=== PATIENT | female | born 1935 | race Caucasian/White ===

== ENCOUNTER 2019-05-05 13:17 | Observation (INO) | payer MEDICARE ==
[~2019-05-05] VITALS: Ht 160 cm; Wt 59.4 kg
[~2019-05-05 13:17] MED LIST: MULTI-VITAMIN1 EACH PO; SIMVASTATIN20 MG PO
[2019-05-05 16:31] VITALS: BP 189/79
[2019-05-05 16:37] VITALS: BP 189/79
--- NOTE | 2019-05-05 17:28 | Diagnostic Imaging Report ---
EXAMINATION: CHEST SINGLE (PORTABLE) INDICATION: Cough COMPARISON: None FINDINGS: LINES/TUBES:None LUNGS:The lungs are well-inflated. No focal consolidation or pulmonary edema. PLEURA:No pleural effusion or pneumothorax. MEDIASTINUM:The cardiomediastinal silhouette appears normal in size and shape. Atherosclerotic calcifications of the thoracic aorta. BONES/SOFT TISSUES:No acute osseous injury. ABDOMEN:No free air under the diaphragm. IMPRESSION: No focal pneumonia or pulmonary edema. Signed by: Jahaira aBer MD on 05/05/2019 5:25 PM
[2019-05-05 17:30] LABS: BASOPHILS % 0.3 % (0.0-1.0); EOSINOPHILS # (AUTO) 0.1 (0.0-0.4); EOSINOPHILS % 1.9 % (0.0-6.0); HEMATOCRIT 36.4 % (34.2-44.1); HEMOGLOBIN 12.1 g/dL (12.0-16.0); LYMPHOCYTES % 29.3 % (18.0-39.1); MEAN CORPUSCULAR HEMOGLOBIN 29.1 pg (28-32); MEAN CORPUSCULAR HGB CONC 33.2 g/dL (31-35); MEAN CORPUSCULAR VOLUME 87.5 fL (81-99); MONOCYTES # (AUTO) 0.7 (0.2-0.8); NEUTROPHILS # (AUTO) 3.9 (2.1-6.9); NEUTROPHILS % 58.1 % (38.7-80.0); PLATELET COUNT 270 x10e3/uL (140-360); RED BLOOD COUNT 4.16 x10e6/uL (3.6-5.1); RED CELL DISTRIBUTION WIDTH 12.9 % (11.7-14.4)
[2019-05-05 17:47] LABS: ANION GAP 16.2 mmol/L (8-16); BLOOD UREA NITROGEN 13 mg/dL (7-26); BUN/CREATININE RATIO 21 (6-25); CALCIUM 9.1 mg/dL (8.4-10.2); CARBON DIOXIDE 24 mmol/L (22-29); CHLORIDE 102 mmol/L (98-107); CREATININE, SERUM 0.61 mg/dL (0.57-1.11); EST GLOMERULAR FILTRATION RATE > 60 ML/MIN (60-); GLUCOSE 92 mg/dL (74-118); POTASSIUM 3.2 mmol/L (3.5-5.1); SODIUM 139 mmol/L (136-145)
[2019-05-05] MEDS ORDERED: AZITHROMYCIN 500MG/NS 250 ML 250 ML IV SCH (18:00)
[2019-05-05] MEDS ORDERED: ALBUTEROL/IPRATROPIUM 3 ML NEB NEB PRN (18:15)
[2019-05-05] MEDS ORDERED: ACETAMINOPHEN 325 MG TAB PO PRN (18:15)
[2019-05-05] MEDS ORDERED: POTASSIUM CHLORIDE 20 MEQ TAB CR PO NR (18:45)
[2019-05-05] MEDS: METHYLPREDNISOLONE SOD SUCC 40 MG/ML VIAL 1ML IV SCH (18:47)
[2019-05-05] MEDS: CEFTRIAXONE SOD 1 GM/NS 50 ML 50 ML IV SCH (18:47)
--- NOTE | 2019-05-05 18:59 | Diagnostic Imaging Report ---
EXAMINATION: CT scan of the chest without contrast. TECHNIQUE: Helical CT images of the chest were performed from the lung apices to the level of the adrenal glands. No intravenous contrast was administered. Coronal and sagittal reformatted images were obtained. Dose modulation, iterative reconstruction, and/or weight based adjustment of the mA/kV was utilized to reduce the radiation dose to as low as reasonably achievable. COMPARISON: None. CLINICAL HISTORY:fever DISCUSSION: ABSENCE OF INTRAVENOUS CONTRAST DECREASES SENSITIVITY FOR DETECTION OF FOCAL LESIONS AND VASCULAR PATHOLOGY. LINES/TUBES: None. LUNGS AND AIRWAYS: Minimal tree-in-bud nodularity in the right upper lobe image 23 through 26. No consolidation. Mild atelectasis along the left major fissure. Right lower lobe calcified granuloma. The airways are normal, without endobronchial lesions. PLEURA: No pneumothorax or pleural effusions. HEART AND MEDIASTINUM: The thyroid gland is normal. Vascular calcifications. LYMPH NODES: There is no mediastinal, hilar or axillary lymphadenopathy. ABDOMEN: Scattered hypodensities within the liver, likely cysts. BONES AND SOFT TISSUES: No acute bony abnormalities. IMPRESSION: No consolidative pneumonia or acute CT finding. Signed by: Dr. Durga Palmer M.D. on 05/05/2019 6:56 PM
--- NOTE | 2019-05-05 19:15 | NUR ---
patient received awake, alert, lying quietly in bed. no c/o pain noted. pm assessment complete. call covarrubias placed within patients reach. bed alarm remains on for safety. patient instructed to call for assistance when needed.
[2019-05-05 20:00] VITALS: BP 142/63
[2019-05-05 20:34] VITALS: BP 142/63
[2019-05-05] MEDS: FAMOTIDINE 20 MG TAB PO SCH (20:53)
[2019-05-06] VITALS: BP 152/83
--- NOTE | 2019-05-06 00:37 | Consultation ---
DATE OF CONSULTATION: REASON FOR CONSULTATION: The patient has pneumonia, allergies to several antibiotics. HISTORY OF PRESENT ILLNESS: This is a patient who is an 84-year-old female, who said that she is allergic to several antibiotics. The patient comes in with fever and chills. She has been sick for 2 weeks. She took some antibiotics, but she is not so sure what they are, so she was admitted. Apparently, she is allergic to penicillin and sulfa drugs, but according to previous note, I found out in the record, she did well with cephalosporin. The patient, who has a history of UTI. She was given Macrobid before she was given cephalosporin before she is coming with the above complaint fever, chills, and cough, not getting any better. The patient is being admitted. PAST MEDICAL HISTORY: UTI before. PAST SURGICAL HISTORY: As above. ALLERGIES: PENICILLIN AND SULFA. SOCIAL HISTORY: There is no smoking, drug abuse, or alcohol abuse. FAMILY HISTORY: Noncontributory. LABORATORY DATA: White count 6.7, hemoglobin 12. Her sodium was still pending actually. A chest x-ray, which was done showed no focal pneumonia. PHYSICAL EXAMINATION: GENERAL: She is currently alert, oriented, does not seem to be in acute distress. VITAL SIGNS: Stable, currently afebrile. Temperature 98.7. HEENT: She is not icteric. NECK: Supple. CHEST: A few crackles bilateral. COR: S1 and S2. ABDOMEN: Soft. Bowel sounds present. No tenderness. EXTREMITIES: No edema. SKIN: No rash. IMPRESSION: Fever, cough, concerned about pneumonia. The chest x-ray was negative. I agree with CBC and chemistry panel. We will put on Rocephin and azithromycin. We will also add steroids, which she will take for a couple of weeks, concerned about post pneumonia and reactive airway. We will follow with you. MD PEDRO LUIS Nash/MANNIE /[id number]
--- NOTE | 2019-05-06 01:07 | History and Physical ---
CHIEF COMPLAINT: 1. Recurrent UTI. 2. Cough. 3. Bronchitis. HISTORY OF PRESENT ILLNESS: This is an 84-year-old female with a past medical history of recurrent UTI, kidney stone, hyperlipidemia, was in her usual state of health until last week. She came to our office for cough, congestion, and UTI. Given the patient doxycycline. The patient has multiple drug allergies. The patient was not feeling better. She came again today with a high fever, neck pain, burning urination, cough, congestion, and runny nose. The patient was sent to the hospital for IV antibiotics and although on IV antibiotics, the patient has multiple drug allergies. PAST MEDICAL HISTORY: 1. Hyperlipidemia. 2. Anxiety. PAST SURGICAL HISTORY: Fracture of the right arm in 2019. FAMILY HISTORY: No family history. SOCIAL HISTORY: The patient lives with daughter. HABITS: Denies smoking. Denies alcohol. Denies illicit drug use. ALLERGIES: THE PATIENT IS ALLERGIC TO PENICILLIN, CIPRO, MACROBID, IBUPROFEN, AND SULFA. MEDICATIONS: The patient on Zocor 20 mg p.o. daily. REVIEW OF SYSTEMS: CONSTITUTIONAL: Denies fatigue or weakness. HEENT: No diplopia. No blurring of vision. CARDIOPULMONARY: No chest pain. Has some cough and shortness of breath. ALIMENTARY SYSTEM: Nausea and vomiting. No diarrhea or constipation. GENITOURINARY SYSTEM: No dysuria. No hematuria. MUSCULOSKELETAL: No joint pain. CENTRAL NERVOUS SYSTEM: No focal weakness. No seizures. PHYSICAL EXAMINATION: GENERAL: This is an 84-year-old female, who is alert and oriented x3. VITAL SIGNS: Temperature 98.7, pulse 91, respiratory rate 20, blood pressure 130/80. HEENT: Head is atraumatic and normocephalic. Pupils bilaterally equal to light. Extraocular muscles intact. NECK: Supple. No JVD. No carotid bruit. LUNGS: Clear to auscultation bilaterally. No added sounds. HEART: Regular rate and rhythm. No S3, S4 or murmur. ABDOMEN: Soft, nontender. No guarding. No rigidity. EXTREMITIES: No edema. Peripheral pulses +1. [employer] CHASSIS: Grossly nonfocal. LABORATORY DATA: CBC normal. CMP, potassium 3.2. ASSESSMENT: 1. Recurrent urinary tract infection. 2. Multiple drug and antibiotic allergy. 3. Bronchitis. 4. Hyperlipidemia. 5. Anxiety. PLAN: 1. Admit the patient to medical floor. IV Rocephin 1 g q.24 hours, Zithromax 500 IV q.24 hours, breathing treatment q.6 hours, Pepcid 20 p.o. b.i.d., methylprednisolone 20 mg IV q.[address] of chest without contrast, potassium p.o., CMP in the morning. Urine culture. Tylenol 500 q.8h p.r.n. for pain and fever, Pepcid 20 mg p.o. b.i.d., DuoNeb q.6 hours. Case was discussed with the son and the patient, total condition and prognosis. Discussed case with Dr. Garvin and nursing staff. MD ALYSSA Trevino/MANNIE /[id number]
[2019-05-06] MEDS: CEFTRIAXONE SOD 1 GM/NS 50 ML 50 ML IV SCH (03:30)
[2019-05-06 04:00] VITALS: BP 154/86
[2019-05-06] MEDS: METHYLPREDNISOLONE SOD SUCC 40 MG/ML VIAL 1ML IV SCH (06:00)
[2019-05-06 06:15] LABS: ALANINE AMINOTRANSFERASE 11 IU/L (0-55); ALBUMIN 3.1 g/dL (3.5-5.0); ALBUMIN/GLOBULIN RATIO 0.9 (0.8-2.0); ALKALINE PHOSPHATASE 74 IU/L (40-150); ANION GAP 14.8 mmol/L (8-16); BLOOD UREA NITROGEN 14 mg/dL (7-26); BUN/CREATININE RATIO 25 (6-25); CALCIUM 9.1 mg/dL (8.4-10.2); CARBON DIOXIDE 24 mmol/L (22-29); CHLORIDE 108 mmol/L (98-107); CREATININE, SERUM 0.55 mg/dL (0.57-1.11); EST GLOMERULAR FILTRATION RATE > 60 ML/MIN (60-); GLUCOSE 142 mg/dL (74-118); POTASSIUM 3.8 mmol/L (3.5-5.1); SODIUM 143 mmol/L (136-145)
[2019-05-06] MEDS ORDERED: IOPAMIDOL 300MG/ML 50ML INFUS..BTL IV ONE (06:17)
[2019-05-06] MEDS ORDERED: B&O 60MG R/S 60 MG SUPP PR ONE (06:17)
[2019-05-06 07:20] VITALS: BP 157/76
--- NOTE | 2019-05-06 07:25 | NUR ---
PATIENT IN BED RESTING WITH NO S/S OF DISTRESS. CALL LIGHT AT REACH.
[2019-05-06 08:00] VITALS: BP 157/76
[2019-05-06] MEDS: FAMOTIDINE 20 MG TAB PO SCH (08:10)
[2019-05-06 09:58] LABS: BILIRUBIN,URINE NEGATIVE (NEGATIVE); CLARITY,URINE CLEAR (CLEAR); COLOR,URINE YELLOW (YELLOW); KETONES,URINE 3+ (NEGATIVE); LEUKOCYTE ESTERASE ,URINE NEGATIVE (NEGATIVE); NITRITE,URINE NEGATIVE (NEGATIVE); PROTEIN,URINE DIPSTICK 1+ (NEGATIVE); URINE UROBILINOGEN 0.2 mg/dL (0.2 - 1)
[2019-05-06] MEDS ORDERED: CEFUROXIME250 MG PO (10:40)
[2019-05-06 10:45] LABS: BACTERIA,URINE MODERATE /HPF; EPITHELIAL CELLS,URINE MODERATE /LPF
--- NOTE | 2019-05-06 11:02 | NUR ---
PATIENT DISCHARGED HOME. DISCHARGE INSTRUCTION, PRESCRIPTIONS, AND FOLLOW UP GIVEN TO PATIENT, SHE VERBALIZED UNDERSTANDING. IV TO LEFT FOREARM REMOVED WITH TIP INTACT. ALL PERSONAL ITEMS TAKEN WITH PATIENT. REFUSED WHEEL CHAIR, BUT WAS ACCOMPANIED TO FRONT LOBBY BY HOSPITAL STAFF IN STABLE CONDITION.
== END 2019-05-06 11:00 | disposition home or self-care (01) ==
LOC: MED/SURG3 14:48
PROVIDERS: ADMIT Internal Medicine; ATTEND Internal Medicine
DX: N39.0 Urinary tract infection, site not specified (principal); Z87.440 Personal history of urinary (tract) infections; R05 Cough; J40 Bronchitis, not specified as acute or chronic; E78.5 Hyperlipidemia, unspecified; F41.9 Anxiety disorder, unspecified; E87.6 Hypokalemia; E46 Unspecified protein-calorie malnutrition; Z68.23 Body mass index [BMI] 23.0-23.9, adult
CPT/HCPCS: 36415 ×2; 71045; 71250; 80048; 80053; 81001; 85025; 87086; G0378 ×2; J0456; J0696 ×2; J2920 ×2; Q9967